=== PATIENT | male | born 1985 | race Caucasian/White ===

== ENCOUNTER 2019-07-30 21:56 | Emergency (ER) | payer OTHER ==
[~2019-07-30] VITALS: Ht 177.8 cm; Wt 93.2 kg
[2019-07-30 22:03] VITALS: BP 124/81; TEMP 98.4
[2019-07-30 22:53] VITALS: PULSE 65
== END 2019-07-30 22:53 | disposition home or self-care (01) ==
LOC: COL.ER 21:56
DX: S61.412A Laceration without foreign body of left hand, initial encounter (principal); W01.0XXA Fall on same level from slipping, tripping and stumbling without subsequent striking against object, initial encounter; Y92.009 Unspecified place in unspecified non-institutional (private) residence as the place of occurrence of the external cause